=== PATIENT | female | born 1945 | race Caucasian/White ===

== ENCOUNTER 2021-05-28 13:07 | Outpatient (REF) | payer MEDICARE, SELFPAY ==
[2021-05-28 14:46] LABS: Rheumatoid Factor < 15.0 IU/mL (<15.0); Uric Acid 8.7 mg/dL (2.4-5.7)
[2021-05-28 15:21] LABS: Erythrocyte Sedimentation Rate 9 MM/HR (0-20)
== END 2021-05-28 13:08 | disposition home or self-care (01) ==
LOC: HO.LAB 13:07
PROVIDERS: PCP Pediatrics; Visit Provider Psychiatry & Neurology Neurology
DX: R26.89 Other abnormalities of gait and mobility (principal)
CPT/HCPCS: 36415; 82550; 84550; 85652; 86431

== ENCOUNTER 2025-08-12 11:19 | Outpatient (AMB) | payer MEDICARE, SELFPAY ==
--- NOTE | 2025-08-12 11:22 | MHC.OFFVIS ---
Vital Signs 08/12/25 11:26 Height 4 ft 10.5 in Weight 202 lb BMI 41.5 BP 168/78 H Blood Pressure Location Lt brachial Position Sitting Pulse 74 Pulse Source Pulse Oximeter Pulse Oximetry (%) 98 Oxygen Delivery Method Room Air Intake Visit Reasons: Chronic back pain Intake Note: Pain today .03/16 Retail Event Assistant Required: No Accompanied by: Spouse Allergies cat dander (cats) Allergy (Unknown, Verified 08/08/25 14:56) Unknown codeine Allergy (Unknown, Verified 08/08/25 14:56) Unknown dog dander (dogs) Allergy (Unknown, Verified 08/08/25 14:56) Unknown erythromycin base Allergy (Unknown, Verified 08/08/25 14:56) Unknown guaifenesin Allergy (Unknown, Verified 08/08/25 14:56) Unknown hydrocodone Allergy (Unknown, Verified 08/08/25 14:56) Unknown iodine Allergy (Unknown, Verified 08/08/25 14:56) Unknown mold Allergy (Unknown, Verified 08/08/25 14:56) Unknown strawberry Allergy (Unknown, Verified 08/08/25 14:56) Unknown HPI Comments Details: The patient is an 79-year-old morbidly obese female with significant medical and surgical history presenting today with chronic pain and fibromyalgia. She reports experiencing chronic pain primarily in her back, which radiates to her legs and is associated with numbness and tingling in her feet and hands. The pain is described as constant, with a quality of pinching, cramping, tugging, pulling, and tingling, and is exacerbated by activity. Pain is worse at night especially in her lower extremities, rating it at 8+/10. The patient has a history of fibromyalgia diagnosed in 1994, with symptoms reportedly beginning as early as age [age]. She has been managing her fibromyalgia with tramadol and gabapentin, and engages in activities such as meditation, Stefan Chi Qigong, and line dancing to help alleviate symptoms. Patient also completed physical therapy, multiple courses of chiropractic manipulation adjustments and acupuncture with minimal relief. The patient also has a history of osteoporosis, spinal stenosis, scoliosis, and left peroneal neuropathy. She experienced a fractured L3 vertebra in April 2021, which was advised to heal naturally without surgical intervention. She has received steroid injections, including trigger point injections, epidural steroidal injections and facet blocks in the past for pain management The patient reports a history of fluid accumulation noted in her lower extremities, particularly in the context of her congestive heart failure. She is interested in Vascular evaluation for lymphedema and its management. - Onset: Chronic, longstanding pain - Quality: Pinching, cramping, tugging, pulling, tingling, hurting, aching, tiring, exhausting, tight, radiating - Location: Primarily in the back, radiating to legs - Radiation: To legs, associated with numbness and tingling and swelling - Exacerbating factors: Activity, bending, squatting - Relieving factors: Meditation, Stefan Chi Qigong, line dancing, topical creams - Interference: Affects sleep, requires use of cane or walker during severe episodes - Affect: Pain impacts sleep and daily activities, causing fatigue and exhaustion - Analgesia: Currently using tramadol and gabapentin; pain level reported as 8+/10 at night, 5/10 in the afternoon - Adverse Effects: No specific adverse effects from medications reported - Activities of Daily Living: Pain limits mobility, requiring use of assistive devices; engages in meditation and Stefan Chi Qigong for relief - Aberrant Drug Related Behaviors: No aberrant behaviors reported Oswestry Low Back Pain Disability Score=13 [facility] Medical History (Updated 08/12/25 @ 21:58 by ANUP Stephens) History of cardioversion Tricuspid regurgitation Tremor Sleep apnea Raynauds disease Peripheral neuropathy Meningioma Lumbar radiculopathy Lumbago LBBB (left bundle branch block) Dementia Cerebral atrophy Arthritis Prediabetes Pacemaker Overactive bladder Osteoporosis RUBEN on CPAP Morbid obesity with BMI of 40.0-44.9, adult Hyperthyroidism Hypertension Hyperlipidemia Graves disease GERD (gastroesophageal reflux disease) Fibromyalgia Constipation Congestive heart failure Back pain Atrial fibrillation Allergies Surgical History History of tonsillectomy History of permanent cardiac pacemaker placement History of open heart surgery H/O: hysterectomy History of cataract surgery History of cardiac cath H/O section History of back surgery Social History (Updated 08/12/25 @ 11:29 by Jacqueline Neil) Alcohol intake: current Alcohol intake frequency: a few times a month Patient Tobacco Use Status: Former Tobacco user Tobacco use type: Cigarette Review of Systems Const Details: - Musculoskeletal: Reports chronic back pain, radiating to legs, with numbness and tingling - Neurological: Reports numbness and tingling in feet and hands - General: Reports fatigue and exhaustion due to pain All systems reviewed & are unremarkable except as noted in HPI and below Physical Exam Vital Signs: Last Vital Signs Pulse 74 08/12/25 11:26 BP 168/78 H 08/12/25 11:26 Pulse Ox 98 08/12/25 11:26 Oxygen Delivery Method Room Air 08/12/25 11:26 BMI result Body Mass Index 41.5 General: Appears afebrile. Alert and oriented. Mood and affect appropriate. Follows and participates in conversation appropriately. Respiratory effort is unlabored. No cough. Able to transition from sit to stand unassisted. Ambulates with bilaterally normal heel strike and toe off, reports increased back pain with right heel/toe standing. General: Yes no CVA tenderness Back/Spine/Pelvis Other: Limited lumbar ROM due to pain. Antalgic gait with mid limping. Lumbar extension reproduces mild to moderate pain, lumbar flexion and bending forward reproduces moderate to severe pain. Demonstrates 5/5 strength of quadriceps bilaterally as well as flexion/dorsiflexion of bilateral feet against resistance. 2+ pedal pulses bilaterally. Straight leg rise with dorsiflexion positive bilaterally. Diminished patellar and achilles reflexes bilaterally. Facet loading test positive bilaterally. Christophe sign, limited Manuel?s, Pelvic compression and Stinchfield tests are positive bilaterally. No groin pain with I/E hip rotations. Moderate TTP to GTB bilaterally. Valsalva maneuver negative. Back: no CVA tenderness Cervical Spine: cervical ROM normal, cervical muscular tenderness, pain with cervical ROM and No Cervical spine tenderness Thoracic/Lumbar Spine: thoracic and lumbar spine normal to inspection, Thoracic/lumbar spine scar(s), Lasegue's sign positive bilateral and diffuse, pain with thoraco-lumbar ROM, paraspinal muscle tenderness, thoraco-lumbar ROM limited, No thoracic spinal tenderness and lumbar spinal tenderness (L3-S1) Sacroiliac joints: bilaterally tender to palpation Extrem General: Yes capillary refill normal, Yes no calf tenderness, No clubbing, No cyanosis and Yes edema (Nonpitting BLE edema) Results Reviewed Results Reviewed: No imaging reports are available for review. Assessment & Plan Assessment & Plan (1) Lumbar radiculopathy: Code(s): M54.16 - Radiculopathy, lumbar region Category: Medical (2) Chronic low back pain: Code(s): M54.50 - Low back pain, unspecified; G89.29 - Other chronic pain Category: Medical (3) Lumbar degenerative disc disease: Code(s): M51.369 - Other intervertebral disc degeneration, lumbar region without mention of lumbar back pain or lower extremity pain Category: Medical (4) Lumbosacral spondylosis: Code(s): M47.817 - Spondylosis without myelopathy or radiculopathy, lumbosacral region Category: Medical (5) Lumbar post-laminectomy syndrome: Code(s): M96.1 - Postlaminectomy syndrome, not elsewhere classified Category: Medical (6) Bilateral lower extremity pain: Code(s): M79.604 - Pain in right leg; M79.605 - Pain in left leg Category: Medical (7) Peripheral neuropathy: Code(s): G62.9 - Polyneuropathy, unspecified Category: Medical Plan The plan involves reviewing most recent lumbar spine MRI and bone density test results to determine the appropriate intervention for the patient's back pain with radicular symptoms. We discussed interventional treatments for axial and radicular low back pain with discogenic and SI joint pain components. For fibromyalgia, the patient is advised to continue with non-pharmacological interventions such as meditation, Stefan Chi Qigong, consider aqua therapy and swimming, cognitive behavior therapy, weight loss, and avoiding inflammatory foods. A Vascular evaluation to rule out lymphedema with a referral to Dr. Guadalupe for further assessment. All questions and concerns have been answered and patient agreed with the treatment plan. Follow up for imaging review/procedure discussion and sooner as needed. Patient was informed and verbally consented to the use of an ambient scribe for clinic note documentation during this visit. Orders: Orders XR lumbar spine 6V w bending Today G89.29 - Other chronic pain, M47.817 - Spondylosis without myelopathy or radiculopathy, lumbosacral region, M51.369 - Other intervertebral disc degeneration, lumbar region without mention of lumbar back pain or lower extremity pain, M54.16 - Radiculopathy, lumbar region, M54.50 - Low back pain, unspecified, M96.1 - Postlaminectomy syndrome, not elsewhere classified Referrals Vascular Surgery Referral G62.9 - Polyneuropathy, unspecified, M79.604 - Pain in right leg, M79.605 - Pain in left leg Coding Level of Care Code New Pt Level 4 (02989) Diagnoses Lumbar radiculopathy M54.16 Chronic low back pain M54.50; G89.29 Lumbar degenerative disc disease M51.369 Lumbosacral spondylosis M47.817 Lumbar post-laminectomy syndrome M96.1 Bilateral lower extremity pain M79.604; M79.605 Peripheral neuropathy G62.9
[2025-08-12 11:26] VITALS: BP 168/78; PULSE 74; O2SAT 98; BMI 41.5
--- OUTSIDE RECORDS SUMMARY | 2025-08-12 13:53 | XMS_ITS | Clinical Summary ---
Author Organization [facility] [address] Address [address] [place] [address] Phone Care Team Providers Care Manager Disaster Recovery Name Role Phone Lawanda Helton MD Primary Care Provider [phone] Allergies Active Allergy Reactions Criticality Noted Date Comments Cat Dander Runny nose 12/02/2010 dog Codeine 10/08/2009 Sob throat closing Codeine-Guaifenesin 10/08/2009 Dog Dander 12/02/2010 Other Reaction(s): Runny Nose/Rhinitis Erythromycin 10/08/2009 Hydrocodone-Acetaminophen 10/08/2009 Iodine High 10/08/2009 Other Reaction(s): Numbness, tingling or swelling of the lips, tongue or mouth Mold 12/02/2010 Other Reaction(s): Runny Nose/Rhinitis [place] Hives 09/19/2018 lilac Medications calcium citrate/vitamin D3 (CALCIUM CITRATE + D ORAL) Take by mouth. Activ e miscellaneous medical supply misc CPAP Historical (HISTORICAL CPAP) Sig - Route: Inhale into the lungs. Regional pressure 8-12 - Inhalation Active sodium chloride (SALINE NASAL MIST NASL) by route daily. Act camila folic acid (FOLVITE) 400 mcg tablet Take 2 tablets (800 mcg total) by mouth 1 (one) time each day. 180 tablet 1 5 11/07/19 26 Active tolterodine LA (DETROL LA) 4 mg 24 hr capsule TAKE 1 CAPSULE(4 MG) BY MOUTH 1 TIME EACH DAY 90 capsule 1 5 Active pantoprazole (PROTONIX) 40 mg EC tablet TAKE 1 TABLET(40 MG) BY MOUTH EVERY OTHER DAY 45 tablet 1 5 Active gabapentin (NEURONTIN) 100 mg capsule TAKE 1 CAPSULE BY MOUTH EVERY MORNING AND TAKE 2 CAPSULES BY MOUTH EVERY EVENING 270 capsule 1 5 Active torsemide (DEMADEX) 5 mg tablet TAKE 2 TABLETS BY MOUTH EVERY MORNING AND 1 TABLET BY MOUTH EVERY EVENING 270 tablet 5 Active rosuvastatin (CRESTOR) 5 mg tablet TAKE 1 TABLET(5 MG) BY MOUTH 1 TIME EACH DAY 90 tablet 5 Active levothyroxine (SYNTHROID, LEVOTHROID) 75 mcg tablet Take 1 tablet (75 mcg total) by mouth 1 (one) time each day. 90 tablet 5 Active warfarin (COUMADIN) 1 mg tablet TAKE 2 TABLETS BY MOUTH DAILY OR DIRECTED BY A/C CLINIC, MAY CAUSE HEAVY BLEEDING, TAKE AT SAME TIME EVERY DAY, DO NOT CHANGE DIETARY HABITS 180 tablet 5 Active alendronate (FOSAMAX) 70 mg tablet TAKE 1 TABLET BY MOUTH EVERY 7 DAYS FIRST THING IN THE MORNING 12 tablet 5 Active Active Problems Problem Noted Date Diagnosed Date Morbid obesity (CMS/[facility]ER[facility] V24, [facility] V28) 2024 S/P TVR (tricuspid valve repair) 12/05/2024 Assessment & Plan (01/30/2025 2:21 PM EDT): Patient has a history of tricuspid valve repair in December 2018. Recent echocardiogram showed tricuspid valve with annular ring in place. Assessment & Plan (12/05/2024 4:10 PM EST): Patient has a history of tricuspid valve repair in December 2018. Will obtain new echocardiogram to reevaluate. Atrial fibrillation (CMS/[facility]ER[facility] V24, CMS/FORMER[facility] V28) 1 11/19/2023 Assessment & Plan (01/30/2025 2:21 PM EDT): Patient has a history of paroxysmal atrial fibrillation status post biatrial maze at the time of her tricuspid valve surgery in 2018. Her heart rate is adequate today. She denies any palpitations or perception of atrial fibrillation and continues on anticoagulation therapy with warfarin. She denies any excessive bruising or bleeding. Will continue current therapies. Assessment & Plan (12/05/2024 4:10 PM EST): Patient has a history of paroxysmal atrial fibrillation status post biatrial maze at the time of her tricuspid valve surgery in 2019. Her heart rate is adequate today. She denies any palpitations or perception of atrial fibrillation and continues on anticoagulation therapy with warfarin. She denies any excessive bruising or bleeding. Will continue current therapies. Orders: ECG 12 lead Transthoracic echocardiogram (TTE) complete with PRN contrast, bubble, strain, and 3D order panel; Future Dyspnea 12/22/2023 Overview (09/24/2024): Last Assessment & Plan: The patient had been reporting mild intermittent episodes of chronic shortness of breath with exertion which has not worsened or changed in any way for quite some time. Her last echocardiogram showed normal LV function and grade 3 diastolic dysfunction with mild aortic insufficiency, tricuspid valve ring well-seated and mild to moderate mitral valve insufficiency. She continues on torsemide and has been tolerating Jardiance given her HFpEF and diastolic dysfunction. She underwent a nuclear stress test which showed no evidence of ischemia or infarct and also had a left heart catheterization in 2018 which showed normal coronary arteries. The patient appears euvolemic on physical exam today without clinical signs of acute heart failure. We discussed that we can refer her to see a supervisor chassis assembly especially given her history of smoking, however the patient is not interested in undergoing consultation. At this point, we will continue current therapies. We will update a new echocardiogram to reevaluate her LV function and evaluate for valvular or worsening abnormalities. She will notify me of any worsening symptoms. Assessment & Plan (01/30/2025 2:21 PM EDT): We discussed this in depth today. Reports of dyspnea for over a year. Recent cardiac testing included pharmacological nuclear stress test December 2024 which showed no areas of ischemia or infarction. In fact, the patient has undergone multiple nuclear stress test which have been normal and left heart catheterization in 2018 showed normal coronary arteries. She also underwent echocardiogram which showed normal LV function and mild valvular insufficiencies. On the other hand, she underwent pulmonary function testing which was noted to be normal. Recent lab work January 2025 showed normal hemoglobin and hematocrit. We discussed the possibility of her symptoms which included HFpEF or deconditioning. Unable to tolerate SGLT2 inhibitors and currently on torsemide with normal heart failure diagnostics and device check. She also mentions that her activity levels have significantly decreased over the past year and she has gained weight which may be contributing to her symptoms. She will follow-up with her primary care provider as she has been having ongoing discussions regarding the possibility of a weight loss injection medication. She will notify our office of any worsening symptoms and continue to gradually increase her activity levels. I have reviewed with the patient the importance of a heart healthy lifestyle which includes eating a low-fat low- salt diet, getting regular exercise, maintaining a healthy weight, not smoking, and following up with routine medical care. Assessment & Plan (12/05/2024 4:10 PM EST): The patient has a history of chronic dyspnea on exertion. She reports her symptoms have been going on for over a year, however recently have progressively worsened over the past few weeks which prompted ER visit. In the past, patient had a left heart catheterization 2017 which showed normal coronary arteries and nuclear stress test June 2022 showed no evidence of ischemia or infarct. Echocardiogram February 2024 showed normal LV function with indeterminate left ventricular diastolic function and mild to moderate aortic insufficiency and mild to moderate mitral regurgitation. In the past, echocardiogram has shown grade 3 diastolic dysfunction as well. She did trial SGLT2 inhibitors however was unable to tolerate the medication and ultimately discontinued it. She continues on torsemide. At her last office visit, she was also referred for CPAP titration study which is scheduled. We have discussed the possibility of increasing her torsemide dose, however has had issues with frequent urination and recent hospitalization showed normal BNP and device check showed euvolemia. Anemia ruled out as well. Given her worsening shortness of breath with exertion, we discussed that we need to rule out the possibility of ischemia as a cause of her symptoms. Recommend she undergo pharmacological nuclear stress test given she is unable to tolerate the treadmill. Also recommend she undergo an echocardiogram to reevaluate her LV function and assess for any valvular progression. Lastly, recommend the patient undergo pulmonary function testing to rule out pulmonary etiology as a cause for her symptoms. She appears euvolemic on physical exam today without clinical signs of acute heart failure. Orders: ECG 12 lead Transthoracic echocardiogram (TTE) complete with PRN contrast, bubble, strain, and 3D order panel; Future Nuclear stress test with myocardial perfusion; Future Pulmonary function testing: Carbon Monoxide Diffusing Capacity, Plethysmography, Spirometry, Spirometry with Bronchodilator; Future Hypertension 08/13/2022 Overview (09/24/2024): Last Assessment & Plan: Patient's blood pressure is well-controlled today. She will continue her current antihypertensive medication regimen as prescribed. Assessment & Plan (01/30/2025 2:21 PM EDT): Blood pressure acceptable today. She will continue her current antihypertensive medication regimen as prescribed. Assessment & Plan (12/05/2024 4:10 PM EST): Blood pressure acceptable today. She will continue her current antihypertensive medication regimen as prescribed. Orders: ECG 12 lead (HFpEF) heart failure with p reserved ejection fraction (CMS/HCC V24, CMS/HCC V28) 06/11/2022 Overview (09/24/2024): Last Assessment & Plan: Patient has a history of HFpEF. Her echocardiogram in July 2022 showed grade 3 LV diastolic dysfunction. Recent echocardiogram showed indeterminate left ventricular diastolic function with mild pulmonary hypertension. She did trial SGLT2 inhibitors, however she was unable to tolerate the medication and ultimately discontinued it. She continues on torsemide. We discussed her chronic dyspnea on exertion. She did undergo nuclear stress test which showed no evidence of ischemia or infarct and past left heart catheterization showed normal coronary arteries. Her symptoms may be multifactorial. We discussed that if her CPAP is not working properly, this may be contributing to her symptoms and given her recent echocardiogram showed mild pulmonary hypertension. She also has a history of atrial fibrillation. Recommend the patient undergo repeat sleep study titration study to further evaluate. We also discussed possibly increasing her torsemide dose, however the patient already has issues with frequent urination and unable to hold her urination and would rather undergo the sleep study prior to making any changes to her diuretic regimen. On today's visit, she does appear euvolemic on physical exam without clinical signs of acute heart failure. Recent remote device check showed stable thoracic impedance which we will continue to monitor. I've asked the patient to call if they develop worsening symptoms of heart failure such as increased shortness of breath, new or worsening cough, increased swelling in the legs or ankles, or weight gain of more than 2 pounds in one day or 4 pounds in one week. Assessment & Plan (01/30/2025 2:21 PM EDT): Patient has history of heart failure preserved ejection fraction. She recently underwent echocardiogram which showed normal LV function. Echocardiogram in the past has shown diastolic dysfunction grade 3. She was unable to tolerate Farxiga due to symptoms of constipation, fatigue, increased thirst in the past. She was then started on Jardiance as an alternative and the patient reports excessive sweating and dry mouth. Ultimately, she discontinued the medication as it was too expensive as well and she did not see any difference in her symptoms. Recent remote device check showed stable heart failure diagnostics. She appears euvolemic on physical exam today without clinical signs of acute heart failure. She will continue her current dose of torsemide as prescribed. Assessment & Plan (12/05/2024 4:10 PM EST): Patient appears euvolemic on physical exam today without clinical signs of acute heart failure. Recent in office device check showed euvolemia. She continues on torsemide as prescribed. Will obtain new echocardiogram to reevaluate her LV function. Orders: ECG 12 lead Transthoracic echocardiogram (TTE) complete with PRN contrast, bubble, strain, and 3D order panel; Future Hypercholesteremia 09/11/2019 Overview (09/24/2024): Last Assessment & Plan: Patient has a history of hyperlipidemia. She continues on rosuvastatin as prescribed. She is due for blood work including a fasting lipid panel and is already ordered by her PCP. We discussed her diet. I have reviewed with the patient the importance of a heart healthy lifestyle which includes eating a low-fat low-salt diet, getting regular exercise, maintaining a healthy weight, not smoking, and following up with routine medical care. Pacemaker 01/26/2019 Overview (09/24/2024): 01/23. biventricular Last Assessment & Plan: Patient has a biventricular pacemaker in place after having atrial standstill after cardiac surgery. We will continue with routine device checks in the device clinic. Assessment & Plan (01/30/2025 2:21 PM EDT): Will continue with routine device checks in the device clinic. Assessment & Plan (12/05/2024 4:10 PM EST): Will continue with routine device checks in the device clinic. Orders: ECG 12 lead Obstructive sleep apnea 07/05/2018 Overview (09/24/2024): [facility] Home Polysomnogram: Date 07/03/2018; AHI 14, Unclassified apneas 1; Obstructive apneas 7; Central apneas 0; Mixed apneas 0; hypopneas 90; average oxygen saturation 94% (lowest 84% without saturations <88% for 5% or more of study) [facility] Polysomnogram treatment study. Date 08/05/2018. SE 79 % SM 82 %; spent 23 % of the study in REM. On CPAP @ 10; RDI 0 (AHI 0), Central apneas 0; Obstructive apneas 0; Mixed apneas 0; hypopneas 0; RERAs 0; and, average oxygen saturation was 93%. For the entire study, PLMs ~9. - Obstructive Sleep Apnea - mild; mostly hypopneas; without sleep related hypoventilation by 2018 home polysomnogram. CPAP @ 10 corrective. Last Assessment & Plan: The patient has a history of obstructive sleep apnea on CPAP therapy. She reports excessive daytime fatigue and tiredness. She does not recall when the last time she had a titration study but it was over 5 years ago and is unsure whether or not her machine is working properly. Will arrange for a titration study to be completed for further evaluation. Assessment & Plan (12/05/2024 4:10 PM EST): Patient has upcoming scheduled sleep study titration study. 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 01/30/2025 Calculus of gallbladder with out cholecystitis without obstruction 03/23/2019 01/30/2025 Overview (09/24/2024): 03/25-patient defers general surgery Tremor 03/23/2019 01/30/2025 Overview (09/24/2024): 03/25-referred to neuro Stage 3 chronic kidney disea se ([facility] V24, [facility] V28) 03/07/2019 01/30/2025 Prediabetes 01/25/2018 01/30/2025 Overview (09/24/2024): 01/22- 130 non fasting 07/31 - HgbA1C 5.8% Vertigo 02/15/2017 01/30/2025 Asthma 02/05/2013 01/30/2025 Lumbago 01/12/2013 01/30/2025 Overview (09/24/2024): Chronic. Chiro. Lumbar disc surgery (comey) 08/18 LBBB (left bundle branch block) 01/12/2012 12/05/2024 Chest pain 10/13/2010 12/05/2024 Overview (09/24/2024): Neg. Cath 02/18. Neg Mibi 10/24. Normal Cath Hypothyroidism following radioiodine therapy 9 01/30/2025 Overview (09/24/2024): S/p I 131, Dr. Chavez Raynaud disease 10/08/2009 12/05/2024 Encounters Date Type Department Care Team Description 07/18/2025 3:20 AM EDT Ancillary Procedure [facility] [address] [place] [address] 06/23/2025 10:15 PM EDT Ancillary Procedure [facility] - [address] [place] [address] 06/04/2025 Anticoagulation - Warfarin Visit [facility] [place] [address] [place] [phone] Esther Bañuelos LPN Atrial fibrillation, unspecified type (CMS/HCC V24, CMS/HCC V28) (Primary Dx) 05/23/2025 Telephone [facility] Cardiology [facility] [address] [facility] [address] [place] [address] Lawanda Helton MD 05/21/2025 9:15 AM EDT Anticoagulation - Warfarin Visit [facility] [place] [address] [place] [address] Atrial fibrillation, unspecified type (CMS/HCC V24, CMS/HCC V28) (Primary Dx) from Last 3 Months Immunizations Immunization Administration Dates Next Due Influenza Quadrivalent, 0.5m l, preservative free (Fluarix; FluLaval; Fluzone) ages 6mo and older (Afluria) 3yo and older 10/09/2022 Influenza trivalent, 0.5mL ( Fluzone High-dose) 65yo and older 07/11/2024,08/17/2023,09/08/2020,10/25,08/22/2018,07/28/2017,07/22/2016 ,08/19/2015 Influenza trivalent, with pr eservative (Fluzone; Afluria) 6mo and older 10/21/2022,12/02/2010 [employer] SARS-CoV-2 COVID-19, mRNA, LNP-S, preservative free 01/24/2021 Pneumococcal conjugate 13 va lent (Prevnar 13, PCV13) 2mo and older 02/09/2016 Pneumococcal polysaccharide 23 valent (Pneumovax 23) 2yo and older 02/14/2014 Td Tetanus diptheria (Tdvax) 7yo and older 06/06/2019,10/08/2009 Zoster Live 09/18/2013 Surgical History Surgery Date Site/Laterality Comments SECTION PROCEDURE: HISTORICAL ; COMMENT: x2 OTHER SURGICAL HISTORY PROCEDURE: [place] TOTAL ABDOMINAL HYSTERECT W/WO RMVL TUBE OVARY BACK SURGERY 08/18 PROCEDURE: HISTORICAL BACK SURGERY; COMMENT: lumbar, Comey CATARACT EXTRACTION 2011 Bilateral PROCEDURE: HISTORICAL CATARACT REMOVAL OTHER SURGICAL HISTORY PROCEDURE: [place] FIMBRIOPLASTY; COMMENT: tubal with hemorrhage OTHER SURGICAL HISTORY 12/2018 PROCEDURE: REPAIR TRICUSPID DEFECT Medical History Medical History Date Comments Historical Medical DX 10/08/2009 DX:Grave d isease Raynaud disease 10/08/2009 DX:Raynaud disea se Chest pain 10/13/2010 DX:Chest pain LBBB (left bundle branch block) 01/12/2012 DX:LBBB (left bundle branch block) Morbid obesity (CMS/HCC V24, CMS/HCC V28) 10/08/2009 DX:Morbid obesity (HCC) Lumbago 01/12/2013 DX:Lumbago; COMM ENT: Chronic. Chiro. Lumbar disc surgery (comey) 08/18 Hypothyroidism following rad ioiodine therapy 10/08/2009 DX:Hypothyroidism following radioiodine therapy; COMMENT: S/p I 131, Dr. Chavez Asthma 02/05/2013 DX:Asthma History of blood transfusion DX: History of blood transfusion Ovarian cyst DX:Ovarian cyst Migraine DX:Migraine Osteoarthritis cervical spine 01/20/2021 DX :Osteoarthritis cervical spine Osteoporosis 05/18/2021 DX:Osteoporosis Family History Medical History Relation Name Comments Breast cancer Aunt 1 P.AUNT x3 Breast cancer Aunt 2 p aunt Other cancer Aunt 2 p aunt stomach Bladder Cancer Aunt 3 maternal Diabetes Brother 1 x3 Heart failure Brother 2 Prostate cancer Brother 3 Other: AIDS Brother 4 Bladder Cancer Brother 5 No Known Problems Brother 6 No Known Problems Brother 7 Migraines Daughter Multiple sclerosis Daughter Other: psoriasis Daughter Brain cancer Father astrocytoma Other cancer Father brain Breast cancer Father's side P. AUNTS X 3 aunts x 3, 2 of which had stomach cancer Other cancer Maternal Grandfather leukemi a Breast cancer Maternal Grandmother 60s Diabetes Mother Heart failure Mother Other cancer Mother skin Other: acoustic neuroma Mother Liver cancer Other 1 mother sister s ons Lung cancer Other 2 mother sister s ons Diabetes Sister 1 70 Heart attack Sister 2 Other: SVT Sister 2 Heart failure Sister 3 Lymphoma Sister 4 No Known Problems Sister 5 No Known Problems Sister 6 No Known Problems Sister 7 Schizophrenia Son Suicide Attempts Son Relation Name Status Comments Aunt 1 P.AUNT Aunt 2 p aunt Aunt 3 Brother 1 Alive Brother 2 Alive Brother 3 Alive Brother 4 Brother 5 Brother 6 Alive Brother 7 Alive Daughter Alive Father Father's side P. AUNTS X 3 Maternal Grandfather Maternal Grandmother 60s Mother Other 1 Other 2 Sister 1 70 Alive Sister 2 Alive Sister 3 Alive Sister 4 Alive Sister 5 Alive Sister 6 Alive Sister 7 Alive Son Social History Tobacco Use Types Packs/Day Years Used Date Smoking Tobacco: Former Cigarettes 2.5 22.1 0 11/07/1965 - 12/22/1987 Smokeless Tobacco: Never Tobacco Cessation:Counseling Given: No Alcohol Use Standard Drinks/Week Comments Yes 0 (1 standard drink = 0.6 oz pur e alcohol) OCC Comments No Sex and Gender Information Value Date Recorded Sex Assigned at Not on file Legal Sex Female 2:53 PM EST Gender Identity Not on file Sexual Orientation Straight 09/14/2024 3: 19 PM EST Obstetrics History Para Term AB IAB SAB Ectopic Multiple Livin g Live Births 2 2 2 2 Date Outcome GA Total Labor Labor/2nd/3rd Weight Sex Type Anes PTL Treasure A1 A5 Name Clin Term Term Last Filed Vital Signs Vital Sign Reading Time Taken Comments Blood Pressure 137/70 05/07/2025 9:16 AM EDT Pulse 73 05/07/2025 9:16 AM EDT Temperature 36.6 C (97.8 F) 05/07/2025 9:16 AM EDT Respiratory Rate - - Oxygen Saturation 94% 01/30/2025 12:55 PM EDT Inhaled Oxygen Concentration - - Weight 93.4 kg (206 lb) 05/07/2025 9:16 AM EDT Height 148.6 cm (4' 10.5 ) 05/07/2025 9:16 AM ED T Body Mass Index 42.32 05/07/2025 9:16 AM EDT Plan of Treatment Upcoming Encounters Date Type Department Care Team (Late st Contact Info) Description 10/16/2025 10:20 AM EST Office Visit [facility] [address] [facility] [address] [place] [phone] Bronson Powers MD [address] [place] [address] [address] [place] [phone] 12/04/2025 9:30 AM EST Ancillary Procedure [facility] [address] [place] [address] Health Maintenance Due Date Last Done Comments Zoster Vaccines (1 of 2) 11/13/2013 09/18/2013 Falls Risk Assessment 10/16/2022 Medicare Annual Wellness Visit 10/16/2022 Social Influencers of Health Screening 10/16/2022 Depression Screening 11/07/2024 COVID-19 Vaccine ( season) 2025 03/17/2022, 09/02/2021, 01/24/2021, Additional history exists Hypertension/CHF/CAD Annual BMP Blood Test 01/09/2026 01/09/2025, 07/12/2024, 07/12/2024 DTaP,Tdap,and Td Vaccines (3 - Td or Tdap) 06/06/2029 06/06/2019, 10/08/2009 Cholesterol Screening (Lipid Panel) 01/09/2030 01/09/2025, 07/12/2024, 07/12/2024 Osteoporosis Screening (Bone Density Screening) 05/08/2031 05/08/2021 Pneumococcal Vaccine: 50+ Years Completed 02/09/2016, 02/14/2014 RSV Immunization Adult Patients Completed 11/01/2024 Influenza Vaccine Completed 07/03/2025, , 08/17/2023, Additional history exists HIB Vaccines Aged Out No longer eligi ble based on patient's age to complete this topic HPV Vaccines Aged Out No longer eligi ble based on patient's age to complete this topic Hepatitis A Vaccines Aged Out No long er eligible based on patient's age to complete this topic Hepatitis B Vaccines Aged Out No long er eligible based on patient's age to complete this topic IPV Vaccines Aged Out No longer eligi ble based on patient's age to complete this topic MMR Vaccines Aged Out No longer eligi ble based on patient's age to complete this topic Meningococcal ACWY Vaccine Aged Out N o longer eligible based on patient's age to complete this topic Meningococcal B Vaccine Aged Out No l onger eligible based on patient's age to complete this topic RSV Immunization Patients Under 20 months Aged Out No longer eligible based on patient's age to complete this topic Varicella Vaccines Aged Out No longer eligible based on patient's age to complete this topic Medical Devices Implanted Type Area Rivet Sticker Device Identifier Shelf Expiration Date Model / Serial / Lot Medt-Card Dana Quad Business Analytics Analyst-P [id number] Implanted:02/2019 by Fernando Quarles MD (Quantity not on file) Cardiac MANAGER CT-P Left: Chest [employer] - CARDIAC RHYTH-CRDM DANA QUAD MANAGER CT-P [id number] / [id number] / Procedures Procedure Name Priority Date/Time Associated Diagnosis Comments CARDIAC DEVICE CHECK- REMOTE- MURJ Routine 07/18/2025 3:16 AM EDT CARDIAC DEVICE CHECK- REMOTE- MURJ Routine 06/23/2025 10:14 PM EDT POC PROTIME INR BLOOD Routine 05/21/2025 Atrial fibrillation, unspecified type (CMS/HCC V24, CMS/HCC V28) COMPREHENSIVE METABOLIC PANEL Routine 01/09/2025 12:44 PM EST Hypertension, unspecified type Hypercholesteremia LIPID PANEL WITH REFLEX TO DIRECT LDL Routine 01/09/2025 12:44 PM EST Hypercholesteremia DXA BONE DENSITY STUDY 1+ SITS AXIAL SKEL Routine 05/08/2021 4:00 PM EDT Other fracture of third lumbar vertebra, initial encounter for closed fracture (CMS/HCC V24, CMS/HCC V28) Wedge compression fracture of third lumbar vertebra, sequela from Last 3 Months or Most Recently Relevant to Health Maintenance Results * Cardiac device check - Remote- MURJ (07/18/2025 3:16 AM EDT) Only the most recent of2 resultswithin the time period is included. Date Time Interrogation Session [id number] CV DEVICE CHECK Type Interrogation Session Remote CV DEVICE CHECK Implantable Pulse Generator Rivet Sticker MDT CV DEVICE CHECK Implantable Pulse Generator Type MANAGER CT-P CV DEVICE CHECK Implantable Pulse Generator Model Dana Quad MANAGER CT-P [id number] CV DEVICE CHECK Implantable Pulse Generator Serial Number [id number] CV DEVICE CHECK Implantable Pulse Generator Implant Date [id number] CV DEVICE CHECK Battery Remaining Longevity 6.0 CV DEVICE CHECK Battery Voltage 2.630 CV D EVICE CHECK Battery LEAD BASED PAINT TECHNICIAN Trigger 2.595 CV DEVICE CHECK Battery Status Middle of Service CV DEVICE CHECK Scotty Statistic RA Percent Paced 99.39 CV DEVICE CHECK Atrial Tachy Statistic AT/AF [place] Percent 0.00 CV DEVICE CHECK Lead Channel Sensing Intrinsic Amplitude 0.875 CV DEVICE CHECK Lead Channel Setting Sensing Sensitivity 0.30 CV DEVICE CHECK Lead Channel Impedance Value 342 CV DEVICE CHECK Lead Channel Pacing Threshold Amplitude 0.875 CV DEVICE CHECK Lead Channel Pacing Threshold Pulse Width 0.4 CV DEVICE CHECK Lead Channel RA Pacing Threshold Date 2025-07-08 CV DEVICE CHECK Lead Channel Setting Pacing Amplitude 1.750 CV DEVICE CHECK Lead Channel Setting Pacing Pulse Width 0.4 CV DEVICE CHECK Lead Channel Sensing Intrinsic Amplitude 7.750 CV DEVICE CHECK Lead Channel Setting Sensing Sensitivity 0.90 CV DEVICE CHECK Lead Channel Impedance Value 380 CV DEVICE CHECK Lead Channel Pacing Threshold Amplitude 1.375 CV DEVICE CHECK Lead Channel Pacing Threshold Pulse Width 0.4 CV DEVICE CHECK Lead Channel RV Pacing Threshold Date 2025-07-12 CV DEVICE CHECK Lead Channel Setting Pacing Amplitude 2.750 CV DEVICE CHECK Lead Channel Setting Pacing Pulse Width 0.4 CV DEVICE CHECK Lead Channel Impedance Value 380 CV DEVICE CHECK Lead Channel Pacing Threshold Amplitude 1.250 CV DEVICE CHECK Lead Channel Pacing Threshold Pulse Width 0.5 CV DEVICE CHECK Lead Channel Pacing Threshold Date 2025-07-12 CV DEVICE CHECK Lead Channel Setting Pacing Amplitude 1.750 CV DEVICE CHECK Lead Channel Setting Pacing Pulse Width 0.5 CV DEVICE CHECK Scotty Setting Mode (NBG Code) DDDR CV DEVICE CHECK Ventricular chambers paced during MANAGER CT pacing. LVOnly CV DEVICE CHECK Scotty Setting Lower Rate Limit 70 CV DEVICE CHECK Scotty Setting AT Mode Switch Rate 171 CV DEVICE CHECK Scotty Setting Maximum Tracking Rate 130 CV DEVICE CHECK Scotty Setting Maximum Sensor Rate 120 CV DEVICE CHECK Scotty Setting PAV Delay 160 CV DEVICE CHECK Scotty Setting MIGUEL Delay 140 CV DEVICE CHECK MANAGER CT LV-RV Delay 0 CV D EVICE CHECK Zone Setting Type Category AT/AF CV DEVICE CHECK Rate 171 CV DEVICE CHECK Therapies Some Rx Off CV DEVIC E CHECK Zone Setting Status Monitor CV DEVICE CHECK Zone ID 2 CV DEVICE CHECK Zone Setting Type Category VT CV DEVICE CHECK Rate 150 CV DEVICE CHECK Zone Setting Status ENABLED CV DEVICE CHECK Zone ID 6 CV DEVICE CHECK Date of Service 2025-09-14 CV DEVICE CHECK Anatomical Region Laterality Modality Device Interroga tion 07/13/2025 1:01 AM EDT Impressions 07/17/2025 8:29 PM EDT Normal Remote: No Events * Normal Device Function * Alerts or events: None * Battery: OK, 6 mos * Sensing, impedance and thresholds reviewed * Programmed parameters reviewed * Presenting rhythm reviewed * Heart Rate Histograms reviewed * No significant changes noted Heart Failure Diagnostic: Stable * Heart failure diagnostics assessed through the device * Status: Stable * No overt HF present Narrative Procedure Note Fernando Quarles MD - 07/18/2025 IMPRESSION: Normal Remote: No Events * Normal Device Function * Alerts or events: None * Battery: OK, 6 mos * Sensing, impedance and thresholds reviewed * Programmed parameters reviewed * Presenting rhythm reviewed * Heart Rate Histograms reviewed * No significant changes noted Heart Failure Diagnostic: Stable * Heart failure diagnostics assessed through the device * Status: Stable * No overt HF present Fernando Quarles MD CV IMPLANTABLE CARDIAC DEV ICE PROCEDURES Final Result * POC Protime INR Blood (05/21/2025) Pathologist [facility] Lot Number INR POC 3.1 Prothrombin Time POC Exp Date Blood 05/21/2025 Lawanda Helton MD POINT OF CARE TEST ENTER/EDIT ORDERABLES Final Result * Lipid panel with reflex to direct LDL (01/09/2025 12:44 PM EST) Cholesterol 127 0 - 200 mg/dL LAB CHEMISTRY METHOD 01/09/2025 6:58 PM [facility] Triglycerides 71 0 - 150 mg/dL LAB CHEMISTRY METHOD 01/09/2025 6:58 PM [facility] HDL 67 >=40 mg/dL LAB CHEMISTRY METHOD 01/09/2025 6:58 PM EST [facility] LDL Calculated 46 0 - 100 mg/dL LAB CHEMISTRY METHOD 01/09/2025 6:58 PM [facility] VLDL Cholesterol Michael 14.2 mg/dL LAB CHEMISTRY METHOD 01/09/2025 6:58 PM [facility] Non HDL Chol. (LDL+VLDL) 60 <145 mg/dL LAB CHEMISTRY METHOD 01/09/2025 6:58 PM [facility] Chol/HDL Ratio 1.9 0.0 - 4.4 LAB CHEMISTRY METHOD 01/09/2025 6:58 PM [facility] Blood Venous blood specimen / Unknown Venipuncture / Unknown 01/09/2025 12:44 PM EST 01/09/2025 12:44 PM EST [facility] [place] LAB BLOOD ORDERABLES Final Res ult [facility] [address] [place] [address], * Comprehensive metabolic panel (01/09/2025 12:44 PM EST) Sodium 139 133 - 145 mmol/L LAB CHEMISTRY METHOD 01/09/2025 6:58 PM [facility] Potassium 4.1 3.5 - 5.5 mmol/L LAB CHEMISTRY METHOD 01/09/2025 6:58 PM [facility] Chloride 104 96 - 110 mmol/L LAB CHEMISTRY METHOD 01/09/2025 6:58 PM [facility] CO2 30 21 - 32 mmol/L LAB CHEMISTRY METHOD 01/09/2025 6:58 PM [facility] Anion Gap 5 3 - 11 LAB CHEMISTRY METHOD 01/09/2025 6:58 PM [facility] Glucose 91 70 - 100 mg/dL LAB CHEMISTRY METHOD 01/09/2025 6:58 PM [facility] BUN 23 5 - 25 mg/dL LAB CHEMISTRY METHOD 01/09/2025 6:58 PM [facility] Creatinine 0.96 0.50 - 1.10 mg/dL LAB CHEMISTRY METHOD 01/09/2025 6:58 PM [facility] eGFR 60 >=60 mL/min/1. 73m2 LAB CHEMISTRY METHOD 01/09/2025 6:58 PM [facility] Comment:Calculation based on the Chronic Kidney Disease Epidemiology Collaboration (CKD-EPI) equation refit without adjustment for race. BUN/Creatinine Ratio 24.0 LAB CHEMISTRY METHOD 01/09/2025 6:58 PM [facility] Calcium 9.2 8.5 - 10.5 mg/dL LAB CHEMISTRY METHOD 01/09/2025 6:58 PM [facility] AST (SGOT) 21 10 - 42 unit/L LAB CHEMISTRY METHOD 01/09/2025 6:58 PM [facility] ALT (SGPT) 21 10 - 60 unit/L LAB CHEMISTRY METHOD 01/09/2025 6:58 PM [facility] Alkaline Phosphatase 46 42 - 121 unit/L LAB CHEMISTRY METHOD 01/09/2025 6:58 PM [facility] Total Protein 7.5 6.0 - 8.0 g/dL LAB CHEMISTRY METHOD 01/09/2025 6:58 PM [facility] Albumin 4.2 3.2 - 5.0 g/dL LAB CHEMISTRY METHOD 01/09/2025 6:58 PM [facility] Total Bilirubin 0.8 0.0 - 1.4 mg/dL LAB CHEMISTRY METHOD 01/09/2025 6:58 PM [facility] Blood Venous blood specimen / Unknown Venipuncture / Unknown 01/09/2025 12:44 PM EST 01/09/2025 12:44 PM EST us C Grady Helton MD LAB BLOOD ORDERABLES Final Res ult [facility] [address] [place] [address], [place] [phone] * DXA BONE DENSITY STUDY Katarina+ BARBARA ARMENTA (05/08/2021 4:00 PM EDT) Anatomical Region Laterality Modality Bone Densitometr y 04/14/2021 11:4 4 AM EDT Narrative 05/08/2021 5:21 PM EDT Clinical history: pathologic fracture of vertebrae Scans of the lumbar spine and hips were performed on a [employer] fan beam bone densitometer. Bone mineral density measurements and associated T and Z scores respectively are as follows: Lumbar Spine: L1-L4 BMD: 0.854 g/cm2 T-Score: -1.8 Z-Score: 0.7 Compared with the prior study dated 10/06/2016, the BMD reading has decreased which is statistically significant Left Proximal Femur: Neck BMD: 0.722 g/cm2 T-Score: -1.1 Z-Score: 1.0 Total BMD: 0.940 g/cm2 T-Score: 0 Z-Score: 1.9 Radius 11/09: BMD: 0.305, T score -6.5, Z score -3.7 Compared with the prior study the mean BMD reading in the total left hip has decreased which is statistically significant Compared with standards for the young adult, lowest measured bone density places the patient in the W.H.O. osteoporotic range. IMPRESSION: IMPRESSION: Osteoporosis.. . The NOF guidelines recommend that FDA approved medical therapies be considered in postmenopausal women and men age >50 years with a: i. Hip or vertebral (clinical or morphometric) fracture ii. T score of < -2.5 at the spine or hip iii. 10 year fracture probability by FRAX of >3% for hip fracture, or >20% for major osteoporotic fracture PLEASE NOTE: W.H.O. classification is based on lowest measured density at the spine, femoral neck, or total hip.This classification has prognostic significance when applied to post menopausal women and older men. 1) The World Health Organization defines low BMD as follows: T-score Normal at or > -1 Osteopenia < -1 and > -2.5 Osteoporosis at or < -2.5 without fractures Established osteoporosis < -2.5 with fractures Procedure Note Fern Brannon MD - 12/20/2022 Clinical history: pathologic fracture of vertebrae Scans of the lumbar spine and hips were performed on a [employer]/ip[employer]elfan beam bone densitometer. Bone mineral density measurements and associated T and Z scoresrespectively are as follows: Lumbar Spine: L1-L4 BMD: 0.854 g/cm2 T-Score: -1.8 Z-Score: 0.7 Compared with the prior study dated 10/06/2016, the BMD reading hasdecreased which is statistically significant Left Proximal Femur: Neck BMD: 0.722 g/cm2 T-Score: -1.1 Z-Score: 1.0 Total BMD: 0.940 g/cm2 T-Score: 0 Z-Score: 1.9 Radius 11/09: BMD: 0.305, T score -6.5, Z score -3.7 Compared with the prior study the mean BMD reading in the total left hiphas decreased which is statistically significant Compared with standards for the young adult, lowest measured bone densityplaces the patient in the W.H.O. osteoporotic range. IMPRESSION: IMPRESSION: Osteoporosis.. . The NOF guidelines recommend that FDA approved medical therapies beconsidered in postmenopausal women and men age >50 years with a: i. Hip or vertebral (clinical or morphometric) fracture ii. T score of < -2.5 at the spine or hip iii. 10 year fracture probability by FRAX of >3% for hip fracture, or >20%for major osteoporotic fracture PLEASE NOTE: W.H.O. classification is based on lowest measured density at the spine,femoral neck, or total hip.This classification has prognostic significance when applied to postmenopausal women and older men. 1) The World Health Organization defines low BMD as follows: T-score Normal at or > -1 Osteopenia < -1 and > -2.5 Osteoporosis at or < -2.5 withoutfractures Established osteoporosis < -2.5 with fractures us Daylin CORLEY IMRaffaele DXA PROCEDURES Final R esult from Last 3 Months or Most Recently Relevant to Health Maintenance Insurance [employer]AGE Care Teams Manager Disaster Recovery Relationship Specialty Start Date End Date Lawanda Helton MD [address] [place] [id number] PCP - General Brazer Assembler 04/22/21
--- OUTSIDE RECORDS SUMMARY | 2025-08-12 13:54 | XMS_ITS ---
Author Name [facility] Organization Unknown Care Team Organization Name Specialty Phone Email Start Date End Da te [facility] Brian Helton Primary Care 09/14/2022 06/25/2024
--- OUTSIDE RECORDS SUMMARY | 2025-08-12 13:54 | XMS_ITS | Clinical Summary ---
Author Organization [facility] Address [address] [place] [address] Care Team Providers Care Diagrammer Name Role Phone Brian Helton MD Primary Care Provider + [phone] Social History Tobacco Use Types Packs/Day Years Used Date Smoking Tobacco: Never Assessed Sex and Gender Information Value Date Recorded Sex Assigned at Not on file Gender Identity Not on file Sexual Orientation Not on file Job Start Date Occupation Industry Not on file Not on file Not on file Plan of Treatment Health Maintenance Due Date Last Done Comments COVID-19 Vaccine (#1) 03/01/1946 Depression Screening 1956 Preventative Health Evaluation 1962 DTap / Tdap / Td (1 - Tdap) 1963 Shingrix-Zoster Vaccine (1 of 2) 1994 Fall Risk Assessment 2009 Osteoporosis Screening (DEXA Scan) 2009 RSV Adult > 60+ Yrs or (1 - 1-dose 75+ series) 2019 Influenza Vaccine (#1) 2025 0, 10/25/2019, 07/28/2017, Additional history exists Pneumococcal Vaccine Completed 02/09/2016, 02/15/20 14 Hepatitis B Vaccines Aged Out No long er eligible based on patient's age to complete this topic RSV Ped < 20 months Aged Out No longe r eligible based on patient's age to complete this topic Care Teams Diagrammer Relationship Specialty Start Date End Date Brian Helton MD PCP - General Osha Inspector 04/22/21
== END 2025-08-12 12:02 | disposition home or self-care (01) ==
LOC: HO.PMC 11:20
PROVIDERS: PCP Nurse Practitioner Family; Visit Provider Nurse Practitioner Family
DX: M54.16 Radiculopathy, lumbar region (principal); M54.50 Low back pain, unspecified; G89.29 Other chronic pain; M51.369 Other intervertebral disc degeneration, lumbar region without mention of lumbar back pain or lower extremity pain; M47.817 Spondylosis without myelopathy or radiculopathy, lumbosacral region; M96.1 Postlaminectomy syndrome, not elsewhere classified; M79.604 Pain in right leg; M79.605 Pain in left leg; G62.9 Polyneuropathy, unspecified
CPT/HCPCS: 99204

== ENCOUNTER → 2025-08-12 11:19 | Outpatient (BNVA) | payer MEDICARE, SELFPAY | PROVIDERS: PCP Nurse Practitioner Family; Visit Provider Nurse Practitioner Family | DX: M54.16 Radiculopathy, lumbar region (principal); M54.50 Low back pain, unspecified; M79.604 Pain in right leg; M79.605 Pain in left leg; M51.369 Other intervertebral disc degeneration, lumbar region without mention of lumbar back pain or lower extremity pain; M47.817 Spondylosis without myelopathy or radiculopathy, lumbosacral region; M96.1 Postlaminectomy syndrome, not elsewhere classified; G62.9 Polyneuropathy, unspecified | CPT/HCPCS: 99202 ==